=== PATIENT | female | born 1940 | race African-American/Black ===

== ENCOUNTER 2016-11-04 08:35 | Observation (INO) | payer MEDICARE ==
[~2016-11-04] VITALS: Ht 167.6 cm; Wt 74.0 kg
[2016-11-04] VITALS (8 sets, daily range): BP systolic 119–146; BP diastolic 56–78; PULSE 62–78; RESP 12–20; TEMP 97.7–98.4; O2SAT 91–96
[~2016-11-04 08:35] MED LIST: ALLE10TA PO; ATOR40TA16 PO; DONE10TA7 PO; FURO20TA PO; LEVO88TA2 PO; OLME0.09 PO
[2016-11-04] MEDS ORDERED: IOHEXOL 350 MG/ML 10 ML VIAL (for RAD DIAG) IVCONTRAST ONE (08:36)
[2016-11-04 11:03] LABS: AUTOMATED NEUTROPHIL # 6.4 TH/MM3 (1.8-7.7); BASOPHIL # 0.1 TH/MM3 (0-0.2); BASOPHIL % 0.5 % (0.0-2.0); EOSINOPHIL # 0.2 TH/MM3 (0-0.4); EOSINOPHIL % 2.1 % (0.0-4.0); HEMATOCRIT 40.4 % (35.0-46.0); HEMO FLAGS DIFF FINAL; LYMPH % 22.9 % (9.0-44.0); LYMPHOCYTE # 2.3 TH/MM3 (1.0-4.8); MEAN CELL VOLUME 90.4 FL (80.0-100.0); MEAN CORPUSCULAR HEMOGLOBIN 29.5 PG (27.0-34.0); MEAN CORPUSCULAR HGB CONC 32.6 % (32.0-36.0); MONO % 9.4 % (0.0-8.0); NEUT % 65.1 % (16.0-70.0); PLATELET COUNT 289 TH/MM3 (150-450); RED BLOOD COUNT 4.47 MIL/MM3 (4.00-5.30); RED CELL DISTRIBUTION WIDTH 14.3 % (11.6-17.2); WHITE BLOOD COUNT 9.8 TH/MM3 (4.0-11.0)
[2016-11-04 11:10] LABS: BACTERIA, URINE RARE /hpf; BLOOD, URINE NEG (NEG); COMMENT (UR) CULTURE INDICATED; CULTURE IF INDICATED CULTURE INDICATED; GLUCOSE,URINE NEG (NEG); HYALINE CAST, URINE 6 /lpf (RARE); KETONE, URINE NEG (NEG); MUCUS URINE FEW /lpf (OCC); NITRITE,URINE NEG (NEG); PH, URINE 5.5 (5.0-8.5); SQUAMOUS EPITHELIAL CELL URINE 2 /hpf (0-5); TRANSITIONAL EPI CELLS, URINE <1 /hpf; URINE COLOR YELLOW (YELLW/STRAW)
[2016-11-04 11:26] LABS: ANION GAP 7 MEQ/L (5-15); AST (GOT) 27 U/L (15-37); BICARBONATE 26.7 MEQ/L (21.0-32.0); BLOOD UREA NITROGEN 26 MG/DL (7-18); CHLORIDE 97 MEQ/L (98-107); GLOMERULAR FILTRATION RATE 60 ML/MIN (>89); POTASSIUM 4.2 MEQ/L (3.5-5.1); SODIUM (NA) 131 MEQ/L (136-145)
[2016-11-04 11:31] LABS: ALKALINE PHOSPHATASE 86 U/L (45-117); ALT (GPT) 21 U/L (10-53); TOTAL BILIRUBIN ADULT 0.3 MG/DL (0.2-1.0)
[2016-11-04] MEDS ORDERED: SODIUM CHLOR 0.9% 1000 ML INJ 1,000 ML IV SCH (11:33)
--- NOTE | 2016-11-04 11:45 | PD ---
HPI Chief Complaint: Syncope/Near-Syncope Time Seen by Provider: 11:11 Travel History International Travel<30 days: No Contact w/Intl Traveler<30days: No Traveled to known affect area: No History of Present Illness HPI 76-year-old male that presents to the ED for evaluation of syncope. Patient has a history of hypertension and high cholesterol as well as mild dementia. Patient apparently has been feeling weak for the past couple days. Most of the history is obtained from the son who is able to provide most of the information. Apparently today patient was standing on her dresser to get some clothes and she started to act weird per son. She noted that she started looking like she was falling asleep and she started to get limp and he help her put her on the ground. She ever since has been back to normal and states that she feels weak. She states that she's been complaining of some left upper abdominal pain on and off. No history of heart disease. No fevers chills or sweats. No urinary or bowel movement issues. Denies any shortness of breath. No chest pain. Per son she's been doing a lot of work at a [employer] and they're not sure that something to do with it. He thought that maybe she was dehydrated. She didn't complain weakness until yesterday when she apparently felt better. Today she was more weak and then she had this episode. She did not hit her head. She takes no blood thinners. Allergies to prednisone. She has lost 10 pounds in the last year. PFSH Past Medical History Arthritis: Yes Asthma: Yes Cardiac Catheterization: No High Cholesterol: Yes GERD: Yes Hypertension: Yes Thyroid Disease: Yes Menopausal: Yes Past Surgical History Surgical History: No Previous Surgery Hysterectomy: Yes Social History Alcohol Use: Yes ([facility]) Tobacco Use: No Substance Use: No Allergies-Medications (Allergen,Severity, Reaction): Coded Allergies: prednisone (Unverified Allergy, Severe, 11/04/16) Reported Meds & Prescriptions Reported Meds & Active Scripts Active Reported Allergy Relief (Loratadine) 10 Mg Tab 10 Mg PO DAILY Atorvastatin (Atorvastatin Calcium) 40 Mg Tab 40 Mg PO HS Donepezil 10 Mg Tab 10 Mg PO HS Furosemide 20 Mg Tab 20 Mg PO DAILY Levothyroxine (Levothyroxine Sodium) 88 Mcg Tab 88 Mcg PO DAILY Olmesartan 20 Mg Tab 20 Mg PO DAILY Review of Systems Except as stated in HPI: all other systems reviewed are Neg Physical Exam Narrative GENERAL: SKIN: Warm and dry. HEAD: Atraumatic. Normocephalic. EYES: Pupils equal and round 4 mm reactive to light and accommodation. No scleral icterus. No injection or drainage. ENT: No nasal bleeding or discharge. Mucous membranes pink and moist. Tongue is midline. No uvula deviation. NECK: Trachea midline. No JVD. CARDIOVASCULAR: Regular rate and rhythm. No murmurs, S3, S4. RESPIRATORY: No accessory muscle use. Clear to auscultation. Breath sounds equal bilaterally. GASTROINTESTINAL: Abdomen soft, non-tender, nondistended. Hepatic and splenic margins not palpable. MUSCULOSKELETAL: Extremities without clubbing, cyanosis, or edema. No obvious deformities. Full range of motion of the upper and lower extremities bilaterally. 2+ pulses bilaterally. NEUROLOGICAL: Awake and alert. No obvious cranial nerve deficits. Motor grossly within normal limits. Five out of 5 muscle strength in the arms and legs. Normal speech. PSYCHIATRIC: Appropriate mood and affect; insight and judgment normal. Data Data Last Documented VS Vital Signs Date Time Temp Pulse Resp B/P (MAP) Pulse Ox O2 Delivery O2 Flow Rate FiO2 11/04/16 11:40 69 14 119/56 (77) 11/04/16 08:37 97.7 91 Orders Orders Electrocardiogram (11/04/16 10:44) Complete Blood Count With Diff (11/04/16 10:44) Comprehensive Metabolic Panel (11/04/16 10:44) Iv Access Insert/Monitor (11/04/16 10:44) Urinalysis - C+S If Indicated (11/04/16 10:44) Urine Culture (11/04/16 10:45) Lipase (11/04/16 11:12) Troponin I (11/04/16 11:12) Ckmb (Isoenzyme) Profile (11/04/16 11:12) Ct Brain W/O Iv Contrast(Rout) (11/04/16 ) Chest, Single Ap (11/04/16 ) Sodium Chlor 0.9% 1000 Ml Inj (Ns 1000 M (11/04/16 11:33) Orthostatic Vital Signs (11/04/16 11:33) Ct Abd/Pel W Iv Contrast(Rout) (11/04/16 ) Ceftriaxone Inj (Rocephin Inj) (11/04/16 12:15) Iohexol 350 Inj (Omnipaque 350 Inj) (11/04/16 08:36) Labs Laboratory Tests Test 11/04/16 10:45 White Blood Count 9.8 TH/MM3 Red Blood Count 4.47 MIL/MM3 Hemoglobin 13.2 GM/DL Hematocrit 40.4 % Mean Corpuscular Volume 90.4 FL Mean Corpuscular Hemoglobin 29.5 PG Mean Corpuscular Hemoglobin Concent 32.6 % Red Cell Distribution Width 14.3 % Platelet Count 289 TH/MM3 Mean Platelet Volume 7.9 FL Neutrophils (%) (Auto) 65.1 % Lymphocytes (%) (Auto) 22.9 % Monocytes (%) (Auto) 9.4 % Eosinophils (%) (Auto) 2.1 % Basophils (%) (Auto) 0.5 % Neutrophils # (Auto) 6.4 TH/MM3 Lymphocytes # (Auto) 2.3 TH/MM3 Monocytes # (Auto) 0.9 TH/MM3 Eosinophils # (Auto) 0.2 TH/MM3 Basophils # (Auto) 0.1 TH/MM3 CBC Comment DIFF FINAL Differential Comment Urine Color YELLOW Urine Turbidity CLEAR Urine pH 5.5 Urine Specific [place] 1.015 Urine Protein NEG mg/dL Urine Glucose (UA) NEG mg/dL Urine Ketones NEG mg/dL Urine Occult Blood NEG Urine Nitrite NEG Urine Bilirubin NEG Urine Urobilinogen LESS THAN 2.0 MG/DL Urine Leukocyte Esterase LARGE Urine RBC 3 /hpf Urine WBC 10 /hpf Urine Squamous Epithelial Cells 2 /hpf Urine Transitional Epithelial Cells <1 /hpf Urine Bacteria RARE /hpf Urine Hyaline Casts 6 /lpf Urine Mucus FEW /lpf Microscopic Urinalysis Comment CULTURE INDICATED Blood Urea Nitrogen 26 MG/DL Creatinine 1.08 MG/DL Random Glucose 90 MG/DL Total Protein 9.6 GM/DL Albumin 3.3 GM/DL Calcium Level 9.1 MG/DL Alkaline Phosphatase 86 U/L Aspartate Amino Transf (AST/SGOT) 27 U/L Alanine Aminotransferase (ALT/SGPT) 21 U/L Total Bilirubin 0.3 MG/DL Sodium Level 131 MEQ/L Potassium Level 4.2 MEQ/L Chloride Level 97 MEQ/L Carbon Dioxide Level 26.7 MEQ/L Anion Gap 7 MEQ/L Estimat Glomerular Filtration Rate 60 ML/MIN Total Creatine Kinase 63 U/L Troponin I LESS THAN 0.02 NG/ML Lipase 260 U/L MDM Medical Decision Making Medical Screen Exam Complete: Yes Emergency Medical Condition: Yes Medical Record Reviewed: Yes Interpretation(s) CBC & BMP Diagram 11/04/16 10:45 Total Protein 9.6 H, Albumin 3.3 L, Calcium Level 9.1, Alkaline Phosphatase 86, Aspartate Amino Transf (AST/SGOT) 27, Alanine Aminotransferase (ALT/SGPT) 21, Total Bilirubin 0.3 UA shows possible UTI EKG shows sinus rhythm with no sign of acute ischemia or arrythmia. Read by me and attending. Troponin and CKMB negative CXR negative CT head negative CT abdomen shows chronic changes. No other medical issues Differential Diagnosis Syncope versus presyncope versus dehydration versus UTI versus dementia versus weakness Narrative Course 76-year-old female that presents to the ED for evaluation of possible syncope. Patient was properly examined and was found to have signs and symptoms consistent with syncope. Labs and imaging were ordered. Patient was given IV fluids here. Labs and imaging showed possible UTI otherwise unremarcable. Patient was reassured. Patient was started on ceftriaxone at this time. Patient still somewhat weak. Patient had a syncopal episode has never had anything like this before. The recommend admission for further evaluation secondary to her age and her comorbidities. Family and patient agree with this. Diagnosis Primary Impression: Syncope Qualified Codes: R55 - Syncope and collapse Additional Impressions: Weakness UTI (urinary tract infection) Qualified Codes: N30.00 - Acute cystitis without hematuria Admitting Information Admitting Physician Requests: Galo Abbott Nov 04, 2016 11:45
[2016-11-04 11:56] LABS: CREATINE KINASE 63 U/L (26-192)
[2016-11-04] MEDS ORDERED: cefTRIAXone INJ 1,000 MG in SODIUM CHLORIDE 0.9% INJ 100 ML IV ONE (12:15)
--- NOTE | 2016-11-04 12:27 | RADRPT ---
EXAM DATE/TIME: 11/04/2016 11:50 [facility] COMPARISON: CHEST PA & LAT, October 12, 2014, 16:48. INDICATIONS : Weakness, fever, syncope, short of breath x1 week. MEDICAL HISTORY : None. SURGICAL HISTORY : None. ENCOUNTER: Initial ACUITY: 1 week PAIN SCORE: 0/10 LOCATION: Bilateral chest FINDINGS: The heart appears mildly enlarged. There are diffuse chronic interstitial changes within the pulmonar y parenchyma. These are stable compared to previous dated 10/12/14. No pleural effusion is identified. The bony structures are grossly intact. CONCLUSION: 1. Pulmonary fibrotic changes. Stable compared to previous exam. Neal Bonilla MD on November 04, 2016 at 12:26 Board Certified Radiologist. This report was verified electronically.
--- NOTE | 2016-11-04 12:50 | RADRPT ---
EXAM DATE/TIME: 11/04/2016 12:16 [facility] COMPARISON: CT BRAIN W/O CONTRAST, February 06, 2012, 11:24. CT ABDOMEN & PELVIS W CONTRAST, September 24, 2014, 20 :27. INDICATIONS : Possible syncopal episode, found on floor by family. RADIATION DOSE: 56.35 CTDIvol (mGy) MEDICAL HISTORY : Gastroesophageal reflux disease. Hypertension. SURGICAL HISTORY : Hysterectomy. ENCOUNTER: Initial ACUITY: 1 day PAIN SCALE: 0/10 LOCATION: cranial TECHNIQUE: Multiple contiguous axial images were obtained of the head. Using automated exposure control and adj ustment of the mA and/or kV according to patient size, radiation dose was kept as low as reasonably a chievable to obtain optimal diagnostic quality images. DICOM format image data is available electro nically for review and comparison. FINDINGS: CEREBRUM: The ventricles are normal for age. No evidence of midline shift, mass lesion, hemorrhage or acute in farction. No extra-axial fluid collections are seen. POSTERIOR FOSSA: The cerebellum and brainstem are intact. The 4th ventricle is midline. The cerebellopontine angle i s unremarkable. EXTRACRANIAL: The visualized portion of the orbits is intact. There is a small mucus retention cyst in the anterior aspect of the ethmoid sinuses on the left. SKULL: The calvaria is intact. No evidence of skull fracture. CONCLUSION: 1. No acute intracranial abnormality is identified. The examination is stable in appearance compared to previous dated 02/06/12. Neal Bonilla MD on November 04, 2016 at 12:47 Board Certified Radiologist. This report was verified electronically.
--- NOTE | 2016-11-04 13:00 | EKG ---
Date Performed: 11/04/2016 Time Performed: 10:54:27 PTAGE: 76 years EKG: Sinus rhythm WITH SINUS ARRHYTHMIA NONSPECIFIC T-WAVE ABNORMALITY BORDERLINE ECG PREVIOUS TRACING : 10/12/2014 15.56 No significant change from previous tracing noted. DOCTOR: Ehsan Dennis Interpretating Date/Time 11/04/2016 12:58:16
--- NOTE | 2016-11-04 13:08 | RADRPT ---
EXAM DATE/TIME: 11/04/2016 12:21 [facility] COMPARISON: CT BRAIN W/O CONTRAST, November 04, 2016, 12:16. INDICATIONS : Nausea, upper abdominal pain. IV CONTRAST: 90 cc Omnipaque 350 (iohexol) IV ORAL CONTRAST: No oral contrast ingested. RADIATION DOSE: 9.96 CTDIvol (mGy) MEDICAL HISTORY : Gastroesophageal reflux disease. Hypertension. SURGICAL HISTORY : Hysterectomy. ENCOUNTER: Initial ACUITY: 1 day PAIN SCALE: 3/10 LOCATION: Bilateral upper quadrant TECHNIQUE: Volumetric scanning of the abdomen and pelvis was performed. Using automated exposure control and ad justment of the mA and/or kV according to patient size, radiation dose was kept as low as reasonably achievable to obtain optimal diagnostic quality images. DICOM format image data is available electro nically for review and comparison. FINDINGS: There diffuse interstitial fibrotic changes within the lung bases. The appearance of the liver, spleen, pancreas, adrenal glands and left kidney is within normal limits . Examination of the right kidney demonstrates 2 simple cysts. The largest measures 3.7 cm. The abdominal aorta is normal in caliber. There is no retroperitoneal adenopathy. No free air or free fluid is seen. The visualized loops of small and large bowel in the upper abdomen are normal in appearance. Are there is no free fluid within the pelvis. No iliac or inguinal adenopa thy is present. The patient is post hysterectomy. There are degenerative changes in the lumbar spine. CONCLUSION: 1. There is advanced atherosclerotic plaquing at the origins of the celiac and SMA. The appear patent . 2. No definite abnormality to explain the patient's nausea and abdominal pain identified. 3. Interstitial fibrotic changes within the lung bases. Neal Bonilla MD on November 04, 2016 at 12:48 Board Certified Radiologist. This report was verified electronically.
--- NOTE | 2016-11-04 15:57 | HHI.HP ---
[facility] Service Family Medicine Primary Care Physician Femi Calabrese MD Admission Diagnosis acute syncope, UTI Diagnoses: International Travel<30 Days: No Contact w/Intl Traveler<30days: No Known Affected Area: No History of Present Illness 76-year-old female, history of Alzheimer's, presents after syncopal episode lasting 2 minutes this morning. The patient had been feeling fatigued and drowsy all week, waking up multiple times during the night to go to the bathroom. Patient did notice an increased urinary frequency. This morning the patient got up to go to the bathroom and she felt weak and she slowly went down to the floor, was caught by her son, and was passed out for 2 minutes according to the son. The patient claims she did feel a little dizzy and nauseous before this episode. This is never happened to her before. The son denies any change in cognition after the event or weakness of any particular extremity. The patient denies any residual effects; no slurred words, blurry vision, change in cognition, weakness on any side. She denies any chest pain/shortness of breath/ dizziness. At bedside the patient currently has no complaints and is feeling fine. She is eating her lunch. She is happy, active, and able to answer questions. (Danelle Matos MD R2) Review of Systems Other Negative 10, then otherwise mentioned in the history of present illness (Danelle Matos MD R2) Past Family Social History Past Medical History chronic neck/back pain chronic leg pain - cortisone shot this week in L knee joint HTN episodes of "heart beating fast", uncertain if this has been worked up hypothyroidism Past Surgical History none (Danelle Matos MD R2) Allergies: Coded Allergies: prednisone (Unverified Allergy, Severe, 11/04/16) Family History parents - unsure brother- heart attack Social History smoking in the 80s only, denies alcohol, denies drug use social: Lives comfortably at home with 2 sons alternating care (Danelle Matos MD R2) Physical Exam Vital Signs Vital Signs Date Time Temp Pulse Resp B/P (MAP) Pulse Ox O2 Delivery O2 Flow Rate FiO2 11/04/16 11:40 69 14 119/56 (77) 11/04/16 11:37 71 20 134/57 (82) 11/04/16 11:36 61 12 144/63 (90) 11/04/16 08:37 97.7 65 12 141/62 (88) 91 Physical Exam GENERAL: This is a well-nourished, well-developed patient, in no apparent distress. SKIN: No rashes, ecchymoses or lesions. Cool and dry. HEAD: Atraumatic. Normocephalic. No temporal or scalp tenderness. EYES: Pupils equal round and reactive. Extraocular motions intact. No scleral icterus. No injection or drainage. ENT: Nose without bleeding, purulent drainage or septal hematoma. Throat without erythema, tonsillar hypertrophy or exudate. Uvula midline. Airway patent. NECK: Trachea midline. No JVD or lymphadenopathy. Supple, nontender, no meningeal signs. CARDIOVASCULAR: Regular rate and rhythm without murmurs, gallops, or rubs. RESPIRATORY: Clear to auscultation. Breath sounds equal bilaterally. No wheezes , rales, or rhonchi. GASTROINTESTINAL: Abdomen soft, non-tender, nondistended. No hepato-splenomegaly , or palpable masses. No guarding. MUSCULOSKELETAL: Extremities without clubbing, cyanosis, or edema. No joint tenderness, effusion, or edema noted. No calf tenderness. Negative Homans sign bilaterally. NEUROLOGICAL: Awake and alert. Cranial nerves II through XII intact. Motor and sensory grossly within normal limits. Negative pronator drift test. Patient not coordinated enough to perform cerebellar testing Five out of 5 muscle strength in all muscle groups. Normal speech. Laboratory Laboratory Tests Test 11/04/16 10:45 White Blood Count 9.8 Red Blood Count 4.47 Hemoglobin 13.2 Hematocrit 40.4 Mean Corpuscular Volume 90.4 Mean Corpuscular Hemoglobin 29.5 Mean Corpuscular Hemoglobin Concent 32.6 Red Cell Distribution Width 14.3 Platelet Count 289 Mean Platelet Volume 7.9 Neutrophils (%) (Auto) 65.1 Lymphocytes (%) (Auto) 22.9 Monocytes (%) (Auto) 9.4 Eosinophils (%) (Auto) 2.1 Basophils (%) (Auto) 0.5 Neutrophils # (Auto) 6.4 Lymphocytes # (Auto) 2.3 Monocytes # (Auto) 0.9 Eosinophils # (Auto) 0.2 Basophils # (Auto) 0.1 CBC Comment DIFF FINAL Differential Comment Urine Color YELLOW Urine Turbidity CLEAR Urine pH 5.5 Urine Specific [place] 1.015 Urine Protein NEG Urine Glucose (UA) NEG Urine Ketones NEG Urine Occult Blood NEG Urine Nitrite NEG Urine Bilirubin NEG Urine Urobilinogen LESS THAN 2.0 Urine Leukocyte Esterase LARGE Urine RBC 3 Urine WBC 10 Urine Squamous Epithelial Cells 2 Urine Transitional Epithelial Cells <1 Urine Bacteria RARE Urine Hyaline Casts 6 Urine Mucus FEW Microscopic Urinalysis Comment CULTURE INDICATED Blood Urea Nitrogen 26 Creatinine 1.08 Random Glucose 90 Total Protein 9.6 Albumin 3.3 Calcium Level 9.1 Alkaline Phosphatase 86 Aspartate Amino Transf (AST/SGOT) 27 Alanine Aminotransferase (ALT/SGPT) 21 Total Bilirubin 0.3 Sodium Level 131 Potassium Level 4.2 Chloride Level 97 Carbon Dioxide Level 26.7 Anion Gap 7 Estimat Glomerular Filtration Rate 60 Total Creatine Kinase 63 Troponin I LESS THAN 0.02 Lipase 260 Date/Time Source Procedure Growth Status 11/04/16 10:45 Urine Clean Catch Urine Culture Pending Received (Danelle Matos MD R2) Result Diagram: 11/04/16 1045 11/04/16 1045 Caprini VTE Risk Assessment Caprini VTE Risk Assessment: No/Low Risk (score <= 1) Caprini Risk Assessment Model Point Value = 1 Point Value = 2 Point Value = 3 Point Value = 5 Age 41-60 Minor surgery BMI > 25 kg/m2 Swollen legs Varicose veins or History of unexplained or recurrent spontaneous Oral contraceptives or hormone replacement Sepsis (< 1 month) Serious lung disease, including pneumonia (< 1 month) Abnormal pulmonary function Acute myocardial infarction Congestive heart failure (< 1 month) History of inflammatory bowel disease Medical patient at bed rest Age 61-74 Arthroscopic surgery Major open surgery (> 45 min) Laparoscopic surgery (> 45 min) Malignancy Confined to bed (> 72 hours) Immobilizing plaster cast Central venous access Age >= 75 History of VTE Family history of VTE Factor V Leiden Prothrombin [id number] Lupus anticoagulant Anticardiolipin antibodies Elevated serum homocysteine Heparin-induced thrombocytopenia Other congenital or acquired thrombophilia Stroke (< 1 month) Elective arthroplasty Hip, pelvis, or leg fracture Acute spinal cord injury (< 1 month) Prophylaxis Regimen Total Risk Factor Score Risk Level Prophylaxis Regimen 0-1 Low Early ambulation 2 Moderate Order ONE of the following: *Sequential Compression Device (SCD) *Heparin 5000 units SQ BID 3-4 Higher Order ONE of the following medications: *Heparin 5000 units SQ TID *Enoxaparin/Lovenox 40 mg SQ daily (WT < 150 kg, CrCl > 30 mL/min) *Enoxaparin/Lovenox 30 mg SQ daily (WT < 150 kg, CrCl > 10-29 mL/min) *Enoxaparin/Lovenox 30 mg SQ BID (WT < 150 kg, CrCl > 30 mL/min) AND/OR *Sequential Compression Device (SCD) 5 or more Highest Order ONE of the following medications: *Heparin 5000 units SQ TID (Preferred with Epidurals) *Enoxaparin/Lovenox 40 mg SQ daily (WT < 150 kg, CrCl > 30 mL/min) *Enoxaparin/Lovenox 30 mg SQ daily (WT < 150 kg, CrCl > 10-29 mL/min) *Enoxaparin/Lovenox 30 mg SQ BID (WT < 150 kg, CrCl > 30 mL/min) AND *Sequential Compression Device (SCD) (Danelle Matos MD R2) Assessment and Plan Assessment and Plan 76-year-old female, history of Alzheimer's, presented status post syncopal episode for 2 minutes with laboratory evidence of UTI Code Status Full code Discussed Condition With Dr. Beck (Danelle Matos MD R2) Attending Attestation THIS CASE WAS DISCUSSED WITH THE RESIDENT PHYSICIAN. I HAVE REVIEWED THE RECORD AND AGREE WITH THE ABOVE NOTE AND PLAN OF CARE WAS DISCUSSED. I HAVE AUTHORIZED THE ORDER FOR PLACEMENT IN OUT-PATIENT OBSERVATION STATUS. (Colton Kennedy MD) Problem List: (1) UTI (urinary tract infection) ICD Codes: N39.0 - Urinary tract infection, site not specified Status: Acute Plan: Ceftriaxone 1 g every 24 Follow-up urine culture (2) Alzheimer's dementia ICD Codes: G30.9 - Alzheimer's disease, unspecified Status: Chronic Plan: Continue home medication: Donepezil 10 mg daily (3) Syncope ICD Codes: R55 - Syncope and collapse Status: Acute Plan: Likely dehydration related to UTI versus TIA versus ACS -Treated for UTI as mentioned above - Syncope precautions: Telemetry, carotid ultrasound, echocardiogram - Follow up ACS workup: First set of EKG and troponins negative (4) Hypertension ICD Codes: I10 - Essential (primary) hypertension Status: Chronic Plan: Continue on losartan 20 daily Continue furosemide 20 daily Follow-up blood pressures (5) ACS risk Status: Chronic Plan: Follow-up ACS workup Continue atorvastatin 40 daily (6) Hypothyroidism ICD Codes: E03.9 - Hypothyroidism, unspecified Status: Chronic Plan: Continue levothyroxine 88 g daily Follow-up TSH and T4 (7) fen/ppx Status: Chronic Plan: Fluids: Maintenance fluids at 110ml/hr Electrolytes: Follow-up BMP Nutrition: Regular diet DVT prophylaxis: Lovenox 40 daily, SCDs (Danelle Matos MD R2) Physician Certification 2 Midnight Certification Type: Continued Stay Order for Inpatient Services The services are ordered in accordance with Medicare regulations or non- Medicare payer requirements, as applicable. In the case of services not specified as inpatient-only, they are appropriately provided as inpatient services in accordance with the 2-midnight benchmark. Estimated LOS (days): 2 days is the estimated time the patient will need to remain in the hospital, assuming treatment plan goals are met and no additional complications. Post-Hospital Plan: Home (Danelle Matos MD R2) Problem Qualifiers (1) UTI (urinary tract infection): Qualified Codes: N30.00 - Acute cystitis without hematuria (2) Alzheimer's dementia: (3) Syncope: Qualified Codes: R55 - Syncope and collapse Danelle Matos MD R2 Nov 04, 2016 15:57 Colton Kennedy MD Nov 05, 2016 11:44
[2016-11-04] MEDS ORDERED: SODIUM CHLORIDE 0.9% FLUSH 10 ML FLUSH IV FLUSH PRN (16:15)
[2016-11-04] MEDS ORDERED: NALOXONE HCL 0.4 MG/ML AMP IV PUSH PRN (16:15)
[2016-11-04] MEDS ORDERED: MAGNESIUM HYDROXIDE SUSP 30 ML CUP PO PRN (17:00)
[2016-11-04] MEDS ORDERED: SENNOSIDES 8.6 MG TAB PO PRN (18:00)
[2016-11-04] MEDS ORDERED: TEMAZEPAM 15 MG CAP PO PRN (18:00)
[2016-11-04] MEDS ORDERED: ACETAMINOPHEN 325 MG TAB PO PRN (18:00)
[2016-11-04] MEDS ORDERED: ENOXAPARIN SODIUM 40 MG/0.4 ML SYRINGE SQ SCH (18:00)
[2016-11-04] MEDS ORDERED: LACTULOSE SYRUP 20 GM/30 ML CUP PO PRN (18:00)
[2016-11-04] MEDS ORDERED: BISACODYL 10 MG SUPP RECTAL PRN (18:00)
[2016-11-04] MEDS ORDERED: ONDANSETRON HCL 4 MG/2 ML VIAL IVP PRN (18:00)
[2016-11-04] MEDS: SODIUM CHLOR 0.9% 1000 ML INJ 1,000 ML IV SCH (18:44)
[2016-11-04] MEDS ORDERED: ATORVASTATIN 40 MG TAB PO SCH (21:00)
[2016-11-04] MEDS ORDERED: DONEPEZIL HCL 5 MG TAB PO SCH (21:00)
[2016-11-04] MEDS: SODIUM CHLORIDE 0.9% FLUSH 10 ML FLUSH IV FLUSH SCH (21:00)
--- NOTE | 2016-11-04 21:04 | RADRPT ---
EXAM DATE/TIME: 11/04/2016 20:20 [facility] COMPARISON: No previous studies available for comparison. INDICATIONS : Syncope. MEDICAL HISTORY : Gastroesophageal reflux disease. Hypertension. Hypothyroidism. Hyperlipidemia. Rheumatoid arthritis. SURGICAL HISTORY : Hysterectomy. ENCOUNTER: Initial ACUITY: 1 day PAIN SCORE: 0/10 LOCATION: Bilateral neck PEAK SYSTOLIC VELOCITIES (cm/sec): ICA/CCA RATIO: Right: 1.1 Left: 0.9 ICA: Right: 112.1 Left: 93.5 CCA: Right: 102.2 Left: 104.6 ECA: Right: 72.4 Left: 118.0 VERTEBRAL: Right: 74.1 antegrade Left: 49.1 antegrade Elevated flow velocities and ICA/CCA ratios have been found to correlate with increased degrees of vessel stenosis, calculated as percentage of diameter relative to a normal segment of distal ICA/CCA FINDINGS: RIGHT CAROTID: Mild atherosclerotic plaque seen in the CCA, bulb and proximal internal carotid artery. LEFT CAROTID: Mild atherosclerotic plaque seen of the CCA, bulb and proximal internal carotid artery. VERTEBRAL ARTERIES: Antegrade flow is seen in both vertebral arteries. MISCELLANEOUS: None. CONCLUSION: Mild atherosclerosis of both carotids as above. No hemodynamically significant narrowing. Talat Mooney MD on November 04, 2016 at 21:02 Board Certified Radiologist. This report was verified electronically.
[2016-11-04] MEDS: DOCUSATE SODIUM 50 MG/SENNA 8.6 MG TAB PO SCH (21:44)
[2016-11-05 00:37] LABS: FREE T4 1.06 NG/DL (0.76-1.46)
[2016-11-05] MEDS: SODIUM CHLOR 0.9% 1000 ML INJ 1,000 ML IV SCH (03:06)
[2016-11-05] MEDS ORDERED: LEVOTHYROXINE SODIUM 88 MCG TAB PO SCH (06:00)
[2016-11-05 06:23] VITALS: O2SAT 94
[2016-11-05 07:47] VITALS: PULSE 66
[2016-11-05 07:59] VITALS: O2SAT 94
[2016-11-05 08:19] LABS: AUTOMATED NEUTROPHIL # 3.9 TH/MM3 (1.8-7.7); BASOPHIL # 0.1 TH/MM3 (0-0.2); BASOPHIL % 0.8 % (0.0-2.0); EOSINOPHIL # 0.3 TH/MM3 (0-0.4); EOSINOPHIL % 3.8 % (0.0-4.0); HEMATOCRIT 34.2 % (35.0-46.0); HEMO FLAGS DIFF FINAL; LYMPH % 30.2 % (9.0-44.0); LYMPHOCYTE # 2.2 TH/MM3 (1.0-4.8); MEAN CELL VOLUME 89.8 FL (80.0-100.0); MEAN CORPUSCULAR HGB CONC 33.4 % (32.0-36.0); NEUT % 54.2 % (16.0-70.0); PLATELET COUNT 259 TH/MM3 (150-450); RED CELL DISTRIBUTION WIDTH 14.4 % (11.6-17.2); WHITE BLOOD COUNT 7.1 TH/MM3 (4.0-11.0)
--- NOTE | 2016-11-05 08:25 | EKG ---
Date Performed: 11/05/2016 Time Performed: 01:53:53 PTAGE: 76 years EKG: Sinus rhythm NORMAL ECG PREVIOUS TRACING : 11/04/2016 10.54 No significant change from previous tracing noted. DOCTOR: Ehsan Dennis Interpretating Date/Time 11/05/2016 08:23:49
[2016-11-05] MEDS: DOCUSATE SODIUM 50 MG/SENNA 8.6 MG TAB PO SCH (08:46)
[2016-11-05] MEDS: SODIUM CHLORIDE 0.9% FLUSH 10 ML FLUSH IV FLUSH SCH (08:47)
[2016-11-05 08:49] LABS: BICARBONATE 26.3 MEQ/L (21.0-32.0); POTASSIUM 3.7 MEQ/L (3.5-5.1)
[2016-11-05] MEDS ORDERED: LORATADINE 10 MG TAB PO SCH (09:00)
[2016-11-05] MEDS ORDERED: LOSARTAN 50 MG TAB PO SCH (09:00)
[2016-11-05] MEDS ORDERED: FUROSEMIDE 20 MG TAB PO SCH (09:00)
[2016-11-05] MEDS ORDERED: PADIMATE (CHAPSTICK) 4.5 GM TUBE TOPICAL PRN (10:15)
[2016-11-05 10:24] VITALS: BP_SYST 132; BP_SYST 138; BP_DIAS 57; BP_DIAS 60; BP_DIAS 63; PULSE 68; RESP 18; TEMP 97.9; O2SAT 96
--- NOTE | 2016-11-05 11:44 | HHI.FPPN ---
Subjective Remarks No acute events overnight patient states that she is feeling relatively well this morning except for some left-sided upper abdominal discomfort. She states that this started this morning and describes it as a sharp pain when she puts direct pressure on it or lays on her left side. She is lying in bed comfortably and was able to eat breakfast without issue. She denies any new episodes of syncope or near syncope. She denies any dizziness or lightheadedness, denies any chest pain or palpitations, denies any shortness of breath, denies any instability when standing. In summary this is a 76-year-old female with a history of dementia who presents after having a syncopal episode at home yesterday morning. She had gotten out of bed to use the bathroom, which she states she has been urinating very frequently, when she became very dizzy and slowly fell to the floor. Her son states that she was out of it for approximately 2 minutes prior to waking up. She did not have any seizure type activity such as tonic-clonic movements, loss of bowel or bladder function, biting of her tongue, or post episode confusion. Objective Vitals Vital Signs Date Time Temp Pulse Resp B/P (MAP) Pulse Ox O2 Delivery O2 Flow Rate FiO2 11/05/16 10:24 97.9 68 18 132/60 (84) 96 132/57 (82) 138/63 (88) 11/05/16 07:59 94 21 11/05/16 07:47 66 11/05/16 06:23 94 11/04/16 21:35 98.4 78 18 138/78 (98) 93 11/04/16 18:25 97.7 71 16 146/67 (93) 94 11/04/16 17:30 11/04/16 16:17 62 16 122/59 (80) 94 Room Air 11/04/16 12:00 68 19 119/56 (77) 96 Room Air 11/04/16 11:40 69 14 119/56 (77) 11/04/16 11:37 71 20 134/57 (82) 11/04/16 11:36 61 12 144/63 (90) I/O 11/04/16 11/04/16 11/04/16 11/05/16 11/05/16 11/05/16 07:00 15:00 23:00 07:00 15:00 23:00 # Voids 1 Result Diagram: 11/05/16 0757 11/05/16 0757 Imaging Last [address] 11/04/16 0000 Signed Impressions: Service Date/Time: Friday, November 04, 2016 12:16 - CONCLUSION: 1. No acute intracranial abnormality is identified. The examination is stable in appearance compared to previous dated 02/06/12. Neal Bonilla MD Chest X-Ray 11/04/16 0000 Signed Impressions: Service Date/Time: Friday, November 04, 2016 11:50 - CONCLUSION: 1. Pulmonary fibrotic changes. Stable compared to previous exam. Neal Bonilla MD Carotid Artery Ultrasound 11/04/16 0000 Signed Impressions: Service Date/Time: Friday, November 04, 2016 20:20 - CONCLUSION: Mild atherosclerosis of both carotids as above. No hemodynamically significant narrowing. Talat Mooney MD Abdomen/Pelvis CT 11/04/16 0000 Signed Impressions: Service Date/Time: Friday, November 04, 2016 12:21 - CONCLUSION: 1. There is advanced atherosclerotic plaquing at the origins of the celiac and SMA. The appear patent. 2. No definite abnormality to explain the patient's nausea and abdominal pain identified. 3. Interstitial fibrotic changes within the lung bases. Neal Bonilla MD Objective Remarks GENERAL: This is a well-nourished, well-developed patient, in no apparent distress. SKIN: No rashes, ecchymoses or lesions. Cool and dry. HEAD: Atraumatic. Normocephalic. EYES: Pupils equal round and reactive. CARDIOVASCULAR: Regular rate and rhythm with a 2/6 murmur, but without gallops , or rubs. RESPIRATORY: Clear to auscultation. Breath sounds equal bilaterally. No wheezes , rales, or rhonchi. GASTROINTESTINAL: Abdomen soft, non-tender, nondistended. Mildly tender in the musculature of the left lateral upper abdomen without guarding or rigidity. MUSCULOSKELETAL: Bilateral lower extremities with 1+ pitting edema up to mid tibia.. NEUROLOGICAL: Awake and alert. Normal speech. A/P Assessment and Plan 76-year-old female, history of Alzheimer's, presented status post syncopal episode for 2 minutes with laboratory evidence of UTI Problem List: (1) UTI (urinary tract infection) ICD Codes: N39.0 - Urinary tract infection, site not specified Status: Acute Plan: Urine culture with large leukocyte esterase and 10 WBC per high-power field - urine culture is pending Antibiotics: Ceftriaxone 1 g every 24 hours (started on 11/04/16) IV fluids discontinued due to lower extremity edema and normalization of BMP If able to discharge today, consider transition to oral Keflex (2) Syncope ICD Codes: R55 - Syncope and collapse Status: Acute Plan: Likely related to infection with UTI versus TIA - Carotid artery ultrasound shows mild atherosclerosis of both carotids with no hemodynamically significant narrowing - Head CT with no acute intracranial abnormality identified Laboratory workup: Troponins and EKGs within normal limits 3 Electrolytes have normalized with IV fluids Echocardiogram pending (3) Alzheimer's dementia ICD Codes: G30.9 - Alzheimer's disease, unspecified Status: Chronic Plan: Continue home medication: Donepezil 10 mg daily (4) Hypertension ICD Codes: I10 - Essential (primary) hypertension Status: Chronic Plan: Continue on losartan 20 daily Continue furosemide 20 daily Follow-up blood pressures (5) ACS risk Status: Chronic Plan: Follow-up ACS workup Continue atorvastatin 40 daily (6) Hypothyroidism ICD Codes: E03.9 - Hypothyroidism, unspecified Status: Chronic Plan: Continue levothyroxine 88 g daily Follow-up TSH and T4 (7) fen/ppx Status: Chronic Plan: Fluids: IV fluids discontinued Electrolytes: Follow-up BMP Nutrition: Regular diet DVT prophylaxis: Lovenox 40 daily, SCDs Problem Qualifiers (1) UTI (urinary tract infection): Qualified Codes: N30.00 - Acute cystitis without hematuria (2) Syncope: Qualified Codes: R55 - Syncope and collapse (3) Alzheimer's dementia: Colton Kennedy MD Nov 05, 2016 11:44
--- NOTE | 2016-11-05 12:58 | HHI.DCPOC ---
Discharge Care Plan Diagnosis: (1) Dehydration (2) ACS risk (3) Syncope Goals to Promote Your Health * To prevent worsening of your condition and complications * To maintain your health at the optimal level Directions to Meet Your Goals Take your medications as prescribed Follow your dietary instruction Follow activity as directed Keep your appointments as scheduled Take your immunizations and boosters as scheduled If your symptoms worsen call your PCP, if no PCP go to Urgent Care Center or Emergency Room Smoking is Dangerous to Your Health. Avoid second hand smoke Call the 24-hour hour crisis hotline for domestic abuse at Danelle Matos MD R2 Nov 05, 2016 12:58
[2016-11-05] MEDS ORDERED: cefTRIAXone INJ 1,000 MG in SODIUM CHLORIDE 0.9% INJ 100 ML IV SCH (13:00)
--- NOTE | 2016-11-05 14:09 | ECHRPT ---
Indication: syncope CONCLUSIONS The left ventricular systolic function is normal with an estimated ejection fraction in the range of 55-60%. Normal left ventricular size. Trace mitral valve regurgitation. There is mild tricuspid valve regurgitation. The estimated pulmonary arterial pressure is 34.6 mmHg. BP: / HR: Rhythm: MEASUREMENTS (Male / Female) Normal Values Technical Quality:Fair 2D ECHO LV Diastolic Diameter PLAX 4.0 cm 4.2 - 5.9 / 3.9 - 5.3 cm LV Systolic Diameter PLAX 2.9 cm IVS Diastolic Thickness 1.2 cm 0.6 - 1.0 / 0.6 - 0.9 cm LVPW Diastolic Thickness 0.8 cm 0.6 - 1.0 / 0.6 - 0.9 cm LV Relative Wall Thickness 0.5 RV Internal Dim ED PLAX 2.2 cm M-MODE Aortic Root Diameter MM 3.1 cm LA Systolic Diameter MM 3.4 cm LA Ao Ratio MM 1.1 AV Cusp Separation MM 1.8 cm DOPPLER MV Peak Velocity 90.2 cm/s MV Peak Gradient 3.3 mmHg MV Mean Velocity 37.7 cm/s MV Mean Gradient 1.0 mmHg Mitral E Point Velocity 56.3 cm/s Mitral A Point Velocity 87.4 cm/s Mitral E to A Ratio 0.6 LV E' Lateral Velocity 7.9 cm/s Mitral E to LV E' Lateral Ratio 7.1 LV E' Septal Velocity 8.4 cm/s Mitral E to LV E' Septal Ratio 6.7 TR Peak Velocity 248.0 cm/s TR Peak Gradient 24.6 mmHg Right Atrial Pressure 10.0 mmHg Pulmonary Artery Systolic Pressu 34.6 mmHg Right Ventricular Systolic Press 34.6 mmHg FINDINGS LEFT VENTRICLE The left ventricular systolic function is normal with an estimated ejection fraction in the range of 55-60%. Normal left ventricular size. Doppler parameters are consistent with impaired left ventricular relaxtion (grade 1 diastolic dysfun ction). RIGHT VENTRICLE Normal right ventricular size and systolic function. LEFT ATRIUM The left atrial size is normal. RIGHT ATRIUM The right atrial size is normal. ATRIAL SEPTUM Normal atrial septal thickness without atrial level shunting by limited color doppler interrogation. AORTA The aortic root and proximal ascending aorta are normal in size on limited imaging. MITRAL VALVE Structurally normal mitral valve. Trace mitral valve regurgitation. AORTIC VALVE Trileaflet aortic valve. Aortic valve sclerosis is present. TRICUSPID VALVE Structurally normal tricuspid valve. There is mild tricuspid valve regurgitation. The estimated pulmonary arterial pressure is 34.6 mmHg. PULMONARY VALVE No pulmonary valve regurgitation or stenosis. VESSELS The inferior vena cava is normal in size. PERICARDIUM No pericardial effusion. Nigel Unger MD (Electronically Signed) Final Date:05 November 2016 14:08
== END 2016-11-05 16:12 | disposition home or self-care (01) ==
LOC: NEPC 08:35 → NEDA 13:43 → NEPHCDU 17:38
PROVIDERS: ADMIT Family Medicine; ATTEND Family Medicine
DX: R55 Syncope and collapse (principal); R53.1 Weakness; N30.00 Acute cystitis without hematuria; I10 Essential (primary) hypertension; F02.80 Dementia in other diseases classified elsewhere, unspecified severity, without behavioral disturbance, psychotic disturbance, mood disturbance, and anxiety; G30.9 Alzheimer's disease, unspecified; E86.0 Dehydration; E03.9 Hypothyroidism, unspecified; E78.00 Pure hypercholesterolemia, unspecified; K21.9 Gastro-esophageal reflux disease without esophagitis; J45.909 Unspecified asthma, uncomplicated; Z79.899 Other long term (current) drug therapy; W18.30XA Fall on same level, unspecified, initial encounter
CPT/HCPCS: 70450; 71010; 74177; 80048; 80053; 81001; 82550; 83690; 84439; 84443; 84484; 85025; 87086; 93005; 93306; 93880; 96125; 96361; 96365; 96372; 97162; 99285; G0378; G8987; G8988; G9168; G9169; G9170; J0696; J1650; J7030; Q9967

== ENCOUNTER 2017-02-15 00:04 | Emergency (ER) | payer MEDICARE ==
[~2017-02-15] VITALS: Ht 165.1 cm; Wt 72.0 kg
[~2017-02-15 00:04] MED LIST changes: -ALLE10TA PO; +LORA-650 PO
[2017-02-15 00:07] VITALS: BP 153/67; PULSE 73; RESP 18; TEMP 98.6; O2SAT 97
== END 2017-02-15 02:05 | disposition left against medical advice (07) ==
LOC: NED 00:04
DX: R68.89 Other general symptoms and signs (principal)
CPT/HCPCS: 99281